=== PATIENT | female | born 1960 ===

== ENCOUNTER → 2016-12-18 | Day surgery (SDC) | payer SELFPAY ==
[2016-12-18] VITALS (10 sets, daily range): BP systolic 98–119; BP diastolic 59–75
[~2016-12-18] VITALS: Ht 170.2 cm; Wt 65.8 kg
[~2016-12-18] MED LIST: ATORVASTATIN CA10 MG ORAL; LR 1000ml ONE
--- NOTE | 2016-12-18 09:15 | Pre-Procedure Note/Attestation ---
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 I attest that, if there was a reasonable possibility of needing a blood transfusion, the patient (or the patient's legal sales representative business courses) was given the [facility] standardized written summary, pursuant to the [place] Blood Safety Act ([place] Health and Safety Code # 1645, as amended). I attest that I re-evaluated the patient just prior to the surgery and that there has been no change in the patient's H&P, except as documented below: YAW HERNANDEZ Dec 18, 2016 09:15
--- NOTE | 2016-12-18 09:16 | Short Stay Surgery H&P ---
History of Present Illness History of Present Illness Chief Complaint anemia HPI Falguni Bryant is a 56 year old female who was admitted on for Abdominal Pain,Colon Screening Patient History Allergies: Coded Allergies: No Known Allergies (Unverified , 12/18/16) PAST MEDICAL HISTORY: (1) Abdominal pain (2) Anemia Past Surgeries: Social History: Medication History Scheduled Atorvastatin Calcium* (Lipitor*), 10 MG ORAL BEDTIME, (Reported) Review of Systems Cardiovascular: Reports: no symptoms Respiratory: Reports: no symptoms Skeletal: Reports: no symptoms Genitourinary: Reports: no symptoms Neurologic: Reports: no symptoms Endocrine: Reports: no symptoms Hematologic: Reports: no symptoms Physical Exam Vital Signs Last Vital Signs Date Time Temp Pulse Resp B/P Pulse Ox O2 Delivery O2 Flow Rate FiO2 12/18/16 07:59 97.7 68 20 115/75 99 Room Air Skin: normal HENT: normal Heart: normal Lungs: normal Abdomen: normal Extremities: normal Plan Plan of Care egd/colonoscopy Final Diagnosis: Attestation Are the patient's medical conditions optimized for surgery? Attestation Response: yes YAW HERNANDEZ Dec 18, 2016 09:16
--- NOTE | 2016-12-18 09:37 | Endoscopy Procedure Note ---
Endoscopy Procedure Note Indication for Procedure: anemia Procedures Performed: EGD Operative Findings/Diagnosis: gastritis, hemorrhoids, one colon polyp Specimen: yes Pt Tolerated Procedure Well: Yes Estimated Blood Loss: none Anesthesiologist: omer Anesthesia: MAC Implant(s) used?: No 50 yrs or older w/o bx or poly: No 10yrs. F/U not recommended: Yes If not recommended, why?: Above average risk 10 yrs. F/U needed: Yes 18 years or older w/prev. colo: No YAW HERNANDEZ Dec 18, 2016 09:37
--- NOTE | 2016-12-18 10:00 | Immediate Post-Op Evaluation ---
Immediate Post-Op Evalulation Immediate Post-Op Evalulation Procedure: EGD/Colonoscopy Date of Evaluation: Dec 18, 2016 Time of Evaluation: 09:59 IV Fluids: 400 Blood Pressure Systolic: 101 Blood Pressure Diastolic: 72 Pulse Rate: 78 Respiratory Rate: 14 O2 Sat by Pulse Oximetry: 100 Temperature (Fahrenheit): 97.2 Nausea: No Vomiting: No Complications none Patient Status: awake, reacts, patent Hydration Status: adequate Drug: none DANIEL COLEMAN CRNA Dec 18, 2016 10:00
--- NOTE | 2016-12-18 10:02 | Anethesia Preoperative Eval ---
Anesthesia Pre-op PMH/ROS General Date of Evaluation: Dec 18, 2016 Time of Evaluation: 09:20 Anesthesiologist: daquan ASA Score: ASA 2 Mallampati Score Class I : Soft palate, uvula, fauces, pillars visible Class II: Soft palate, uvula, fauces visible Class III: Soft palate, base of uvula visible Class IV: Only hard plate visible Mallampati Classification: Class I Surgeon: josé luis Diagnosis: colon screening Surgical Procedure: EGD/Colonoscopy Social History: smoking Family History: no anesthesia problems Allergies: Coded Allergies: No Known Allergies (Unverified , 12/18/16) Medications: see eMAR Past Medical History Cardiovascular: Denies: CAD, HTN, [place], arrhythmia, other, valve dz Pulmonary: Denies: COPD, GAGANDEEP, asthma, other Gastrointestinal/Genitourinary: Denies: CRI, ESRD, GERD, other Neurologic/Psychiatric: Denies: CVA, TIA, dementia, depression/anxiety, other Endocrine: Denies: DM, hypothyroidism, other, steroids HEENT: Denies: ALTURAS (L), ALTURAS (R), cataract (L), cataract (R), glaucoma, other Hematology/Immune: Denies: DVT, anemia, bleeding disorder, other Musculoskeletal/Integumentary: Denies: DDD, DJD, OA, RA, edema, other PSxH Narrative: cosmetic surgery - no comp Anesthesia Pre-op Phys. Exam Physician Exam Last Vital Signs Date Time Temp Pulse Resp B/P Pulse Ox O2 Delivery O2 Flow Rate FiO2 12/18/16 07:59 97.7 68 20 115/75 99 Room Air Constitutional: NAD Neurologic: CN 2-12 intact Cardiovascular: RRR Respiratory: CTA Gastrointestinal: S/NT/ND Airway Exam Mallampati Classification 1 Mallampati Score: Class I MO: full ROM: full Dentures: no lower, no upper Anesthesia Pre-op A/P Studies Pre-op Studies: EKG - SR Risk Assessment & Plan Plan: mac Status Change Before Surgery: No Pre-Antibiotics Drug: none DANIEL COLEMAN CRNA Dec 18, 2016 10:02
--- NOTE | 2016-12-18 10:55 | 48 Hour Post Anesthesia Eval ---
Post Anesthesia Evaluation Procedure: EGD/Colonoscopy Date of Evaluation: Dec 18, 2016 Time of Evaluation: 10:54 Blood Pressure Systolic: 101 0: 50 Pulse Rate: 75 Temperature (Fahrenheit): 99 Airway: patent Nausea: No Vomiting: No Hydration Status: adequate Mental Status/LOC: patient returned to baseline Post-Anesthesia Complications: none DANIEL COLEMAN CRNA Dec 18, 2016 10:55
--- NOTE | 2016-12-18 19:58 | Procedure Note ---
DATE OF PROCEDURE: 12/18/2016 SURGEON: Richard Stafford M.D. PROCEDURE: Upper endoscopy and colonoscopy. ANESTHESIA: Per INFORMATION DIRECTOR, Anh. INSTRUMENT: Olympus adult flexible upper endoscope and colonoscope. INDICATION: Anemia. REASON FOR PROCEDURE: The procedure, risks, benefits, and possible consequences, including hemorrhage, aspiration, perforation and infection, and alternative treatments, were explained to the patient/legal guardian by Dr. Richard Stafford and the patient/legal guardian understood and accepted these risks. PROCEDURE: After informed consent was obtained and the patient was adequately sedated, Olympus upper endoscope was advanced from mouth into the second portion of the duodenum and retroflexion was performed in the stomach. The patient had evidence of diffuse gastritis. Random biopsy from antrum of the stomach was obtained to rule out H. pylori infection. The patient had evidence of small hiatal hernia. No evidence of any esophagitis or esophageal mass. No evidence of any gastric ulceration or gastric mass. At this time, upper endoscope was retrieved and the patient was turned over for colonoscopy. First, a rectal exam was performed, which was normal. Then, the scope was advanced from rectum into the cecum, documented by appendiceal orifice, ileocecal valve, and right upper quadrant palpation. Quality of prep was very good. The patient had one diminutive polyp in the rectosigmoid area, which was removed with the cold biopsy forceps technique. Otherwise, the rest of the colonoscopy examination was within normal limit. There is no obvious mass, polyp, diverticulosis, or any other pathology was seen. Retroflexion of rectum showed evidence of few small nonbleeding internal hemorrhoids. SUMMARY FINDINGS: 1. Gastritis, status post biopsy. 2. Very small hiatal hernia. 3. One colonic polyp removed, see above for details. 4. Internal hemorrhoids. RECOMMENDATIONS: Follow up biopsy results and treat accordingly. I want to thank Dr. Zarco, for this kind referral. Richard Stafford M.D. DR: FLORENCIO JOB#: [id number] CC: Marcos Zarco MD; Fax#: [phone]
--- NOTE | 2016-12-19 18:49 | Cardiology Report ---
APPROVED REPORT EKG Measurement Heart [id number] Normal sinus rhythm Normal ECG
== END | disposition home or self-care (01) ==
LOC: GAS 07:12
DX: D64.9 Anemia, unspecified (principal); K29.50 Unspecified chronic gastritis without bleeding; K44.9 Diaphragmatic hernia without obstruction or gangrene; D12.7 Benign neoplasm of rectosigmoid junction; K64.8 Other hemorrhoids; F17.200 Nicotine dependence, unspecified, uncomplicated
CPT/HCPCS: 43239; 45380; 93005; J7120; 94003; 94150